=== PATIENT | female | born 1945 | race Caucasian/White ===

== ENCOUNTER 2018-05-11 11:32 | Day surgery (SDC) | payer MEDICARE, OTHER ==
[~2018-05-11] VITALS: Ht 162.6 cm; Wt 59.7 kg
[~2018-05-11 11:32] MED LIST: ALBU90OI61; Albuterol2.5 MG/0.5 INH; B-121000 MC2 PO; CALCAVITD PO; Daily Multiple1 EACH PO; FLUSAL2505 INH; GABA300 PO; NAPR220 PO; Nortriptyline H25 MG PO; PANT40; PRAV20; VITAMIN D31000 UNIT PO; Ventolin5 MG/1 ML
== END 2018-05-11 13:28 | disposition home or self-care (01) ==
LOC: ORSCSDS 11:32
PROVIDERS: Orthopaedic Surgery
PROC: 01N50ZZ Release Median Nerve, Open Approach (ICD-10-PCS; principal; 2018-05-11 13:15)
DX: G56.02 Carpal tunnel syndrome, left upper limb (principal); J44.9 Chronic obstructive pulmonary disease, unspecified; K21.9 Gastro-esophageal reflux disease without esophagitis; Z87.891 Personal history of nicotine dependence
CPT/HCPCS: J2250; J3010; J7120

== ENCOUNTER 2021-04-23 07:38 | Day surgery (SDC) | payer MEDICARE, OTHER ==
[~2021-04-23] VITALS: Ht 162.6 cm; Wt 51.8 kg
[2021-04-23] MEDS ORDERED: DICLOFENAC SOD100 G1 TOP (08:28)
[2021-04-23] MEDS ORDERED: ESZO2 PO (08:29)
--- NOTE | 2021-04-23 10:35 | NUR ---
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 STATES PAIN IS 5/10
== END 2021-04-23 11:15 | disposition home or self-care (01) ==
LOC: ORSCSDS 07:38
PROVIDERS: Orthopaedic Surgery
PROC: 0LB60ZZ Excision of Left Lower Arm and Wrist Tendon, Open Approach (ICD-10-PCS; principal; 2021-04-23 09:00)
PROC: 0RQT0ZZ Repair Left Carpometacarpal Joint, Open Approach (ICD-10-PCS; principal; 2021-04-23 09:00)
PROC: 0LU607Z Supplement Left Lower Arm and Wrist Tendon with Autologous Tissue Substitute, Open Approach (ICD-10-PCS; principal; 2021-04-23 09:00)
DX: M18.12 Unilateral primary osteoarthritis of first carpometacarpal joint, left hand (principal); J44.9 Chronic obstructive pulmonary disease, unspecified; Z79.899 Other long term (current) drug therapy; Z87.891 Personal history of nicotine dependence
CPT/HCPCS: A9270; C1713; J0690; J1100; J2405; J2704; J2795; J3010; J7120

== ENCOUNTER 2023-02-24 11:34 | Day surgery (SDC) | payer MEDICARE, OTHER ==
[~2023-02-24] VITALS: Ht 162.6 cm; Wt 53.4 kg
[~2023-02-24 11:34] MED LIST changes: +DICLOFENAC SOD100 G1 TOP; +ESZO2 PO
[2023-02-24] MEDS ORDERED: Travatan Z5 ML (12:05)
[2023-02-24] MEDS ORDERED: TRILOGY (12:05)
[2023-02-24 13:59] VITALS: BP 120/68
== END 2023-02-24 13:48 | disposition home or self-care (01) ==
LOC: ORSCSDS 11:34
PROVIDERS: Internal Medicine Gastroenterology
PROC: 0DB68ZX Excision of Stomach, Via Natural or Artificial Opening Endoscopic, Diagnostic (ICD-10-PCS; principal; 2023-02-24 13:00)
PROC: 0DB98ZX Excision of Duodenum, Via Natural or Artificial Opening Endoscopic, Diagnostic (ICD-10-PCS; principal; 2023-02-24 13:00)
DX: K21.9 Gastro-esophageal reflux disease without esophagitis (principal); R11.0 Nausea; K31.7 Polyp of stomach and duodenum; N18.30 Chronic kidney disease, stage 3 unspecified; E78.5 Hyperlipidemia, unspecified; J44.9 Chronic obstructive pulmonary disease, unspecified; F32.A Depression, unspecified; F41.9 Anxiety disorder, unspecified; Z87.891 Personal history of nicotine dependence; Z79.899 Other long term (current) drug therapy
CPT/HCPCS: 88305; 88342; J0461; J2001; J2405; J2704; J7120; Q9968